=== PATIENT | female | born 1985 | race Two or more races ===

== ENCOUNTER 2024-11-12 12:23 | Emergency (ER) | payer MEDICAID, OTHER ==
[2024-11-12 12:39] VITALS: PULSE 129; RESP 20; TEMP 98.3; O2SAT 95
--- NOTE | 2024-11-12 14:29 | ED.PDOC ---
General HPI Comments This is a 39 year old female presenting to the ED with chief complaint of flank pain. Patient reports that she has been experiencing left sided flank pain with associated suprapubic pain, fever, and chills since Thursday. Patient relays that she saw her PCP on Thursday, being prescribed Macrobid, but no relief has been noted. Patient states her pain is an 8/10 at this time. Patient denies any hematuria, headache, N/V/D, or vaginal discharge. Chief Complaint: Urinary Time Seen by MD: 14:25 Reviewed notes: Nurses Notes, Medications, Allergies Allergies: Coded Allergies: NO KNOWN ALLERGIES (Unverified , 11/12/24) Information Source: Patient Mode of Arrival: Ambulatory Severity: Moderate Timing: Days Duration: Since onset Prehospital treatment: None Onset: Spontaneous History of: None Location: Suprapubic, (L)Flank associated signs and symptoms: Fever, Abdominal Pain, Flank Pain Past Medical History PAST MEDICAL HISTORY: Denies Surgical History: Denies all surgeries CORPORATE RISK ANALYST History: No Pertinent CORPORATE RISK ANALYST History Family History Family History: Reviewed,noncontributory to illness Social History Smoker: Non-Smoker Alcohol: Denies ETOH Use Drugs: Denies Drug Use Lives In: Home Constitutional: reports: chills, fever; denies: diaphoresis, fatigue, malaise, sweats, weakness, others EENTM: denies: blurred vision, double vision, ear bleeding, ear discharge, ear drainage, ear pain, ear ringing, eye pain, eye redness, hearing loss, mouth pain, mouth swelling, nasal discharge, nose bleeding, nose congestion, nose pain, photophobia, tearing, throat pain, throat swelling, voice changes, others Respiratory: denies: cough, hemoptysis, orthopnea, SOB at rest, shortness of breath, SOB with excertion, stridor, wheezing, others Cardiovascular: denies: chest pain, dizzy spells, diaphoresis, Dyspnea on exertion, edema, irregular heart beat, left arm pain, lightheadedness, palpitations, PND, syncope, others Gastrointestinal: reports: abdominal pain; denies: abdomen distended, blood streaked bowels, constipated, diarrhea, dysphagia, difficulty swallowing, stephan temesis, melena, nausea, poor appetite, poor fluid intake, rectal bleeding, rectal pain, vomiting, others Genitourinary: reports: flank pain; denies: abnormal vagina bleeding, burning, dyspareunia, dysuria, frequency, hematuria, incontinence, pain, , vagina discharge, urgency, others Neurological: denies: dizziness, fainting, headache, left sided numbness, left sided weakness, numbness, paresthesia, pre-existing deficit, right sided nu mbness, right sided weakness, seizure, speech problems, tingling, tremors, weakness, others Musculoskeletal: denies: back pain, gout, joint pain, joint swelling, muscle pain, muscle stiffness, neck pain, others Integumetry: denies: bruises, change in color, change in hair/nails, dryness, laceration, lesions, lumps, rash, wounds, others Allergic/Immunocompromised: denies: Difficulty Healing, Frequent Infections, Hives, Itching, others Hematologic/Lymphatic: denies: anemia, blood clots, easy bleeding, easy bruising, swollen glands, others Endocrine: denies: excessive hunger, excessive sweating, excessive thirst, excessive urination, flushing, intolerance to cold, intolerance to heat, unexplained weight gain, unexplained weight loss, others Psychiatric: denies: anxiety, bipolar disorder, depression, hopeless, panic disorder, schizophrenia, sleepless, suicidal, others All Other Systems: Reviewed and Negative Physical Exam General Appearance: No Apparent Distress, Normal HEENT: Normal ENT Inspection, Pharynx Normal, TMs Normal Neck: Full Range of Motion, Non-Tender, Normal, Normal Inspection Respiratory: Chest Non-Tender, Lungs Clear, No Accessory Muscle Use, No Respiratory Distress, Normal Breath Sounds Cardiovascular: No Edema, No JVD, No Murmur, No Gallop, Normal Peripheral Pulses, Regular Rate/Rhythm Breast Exam: Deferred Gastrointestinal: No Organomegaly, Non Tender, No Pulsatile Mass, Normal Bowel Sounds, Soft, Other (Left sided flank pain) Genitalia: Deferred Pelvic: Deferred Rectal: Deferred Extremities: No calf tenderness, Normal capillary refill, Normal inspection, Normal range of motion, Non-tender, No pedal edema Musculoskeletal : Apperance: Normal Neurologic: Alert, state director II-XII nml as Tested, No Motor Deficits, Normal Affect, Normal Mood, No Sensory Deficits Cerebellar Function: Normal Reflexes: Normal Skin: Dry, Normal Color, Warm Lymphatic: No Adenopathy Was a procedure done? Was a procedure done?: No Differential Diagnosis Kidney stone (Female): Pyelonephritis, Renal failure, Urinary obstruction, Urolithiasis Kidney stone (Male): Pyelonephritis, Urinary obstruction, Urolithiasis, Urinary tract infection Urinary Problem (Female): Urinary retention, Urolithiasis, UTI X-Ray, Labs, Meds, VS Vital Signs Date Time Temp Pulse Resp B/P (MAP) Pulse Ox O2 Delivery O2 Flow Rate FiO2 11/12/24 12:39 98.3 129 20 119/82 (94) 95 98.3 Lab Test 11/12/24 14:20 11/12/24 12:45 Range/Units White Blood Count 17.7 H 4.4-10.8 10^3/uL Red Blood Count 5.68 H 4.0-5.20 10^6/uL Hemoglobin 16.0 12.2-16.2 g/dL Hematocrit 47.4 H 36.0-46.0 % Mean Corpuscular Volume 83.4 80.0-100.0 fL Mean Corpuscular Hemoglobin 28.2 28.0-32.0 pg Mean Corpuscular Hemoglobin Concent 33.9 32.0-36.0 g/dL Red Cell Distribution Width 14.2 11.8-14.3 % Platelet Count 204 140-450 10^3/uL Mean Platelet Volume 9.2 6.9-10.8 fL Neutrophils (%) (Auto) 85.0 H 37.0-80.0 % Lymphocytes (%) (Auto) 6.2 L 10.0-50.0 % Monocytes (%) (Auto) 8.3 0.0-12.0 % Eosinophils (%) (Auto) 0.1 0.0-7.0 % Basophils (%) (Auto) 0.4 0.0-2.0 % Neutrophils # (Auto) 15.0 H 1.6-8.6 10 ^3/uL Lymphocytes # (Auto) 1.1 0.4-5.4 10 ^3/uL Monocytes # (Auto) 1.5 H 0-1.3 10 ^3/uL Eosinophils # (Auto) 0 0-0.8 10 ^3/uL Basophils # (Auto) 0.1 0-0.2 10 ^3/uL Nucleated Red Blood Cells 0.1 % Sodium Level 139 136-145 mmol/L Potassium Level 4.1 3.5-5.1 mmol/L Chloride Level 103 98-107 mmol/L Carbon Dioxide Level 26 20-31 mmol/L Anion Gap 10 5-15 Blood Urea Nitrogen 8 L 9-23 mg/dL Creatinine 0.95 0.550-1.02 mg/dL Glomerular Filtration Rate Calc 77 >90 mL/min BUN/Creatinine Ratio 8.4 L 10.0-20.0 Serum Glucose 99 74-106 mg/dL Calcium Level 10.4 8.7-10.4 mg/dL Urine Color Light-yellow Yellow Urine Clarity Clear Clear Urine pH 5.5 5.0-9.0 Urine Specific [place] 1.009 1.001-1.035 Urine Protein Negative Negative Urine Ketones Negative Negative Urine Blood 2+ H Negative /uL Urine Nitrite Negative Negative Urine Bilirubin Negative Negative Urine Urobilinogen Normal Negative mg/dL Urine Leukocyte Esterase 1+ Negative /uL Urine RBC 1 0 - 4 /hpf Urine Microscopic WBC 3 0-5 /HPF Urine Squamous Epithelial Cells Few <5 /hpf Urine Bacteria Few H None Seen /hpf Urine Glucose Normal Normal mg/dL Time of 1ST Reevaluation: 15:24 Reevaluation 1ST: Unchanged Patient Education/Counseling: Diagnosis, Treatment, Prognosis, Need For Follow Up Family Education/Counseling: No Family Present Additional Information Previous visits reviewed: None The following tests were ordered, and results were reviewed by me: CT Abd/Pel, UA, CBC, BMP Additional Information was gathered from interviewing the following independent historians: None I reviewed and agreed with the following test results read by other providers: CT Abd/Pel I discussed treatment and results with medical personnel and: patient Comprehensive systems review obtained and negative except for what is stated in the HPI. pt has fever, chills, flank pain, leukocytosis and uti. she has pyelonephritis and will be admitted for iv antibiotic SEPSIS Sepsis Screen Date sepsis recognized/suspect: Nov 12, 2024 Time Sepsis recognized/suspect: 1242 Recent Procedure: No On Antibiotic Therapy: No Respiratory Rate >20: No Heart Rate >90: Yes Temp<36 C (96.8 F) or >38.3 C: No SBP <90 or MAP <65 mmHG: No New Acute Mental Status Change: No Is the patient on CPAP, BIPAP,: No Physician Orders Ct Ab Pel Wo Con-No Oral Or Iv (11/12/24 14:05) Ceftriaxone 1gm/50ml D5w (Rocephin) (11/12/24 16:00) Vital Signs Date Time Temp Pulse Resp B/P (MAP) Pulse Ox O2 Delivery O2 Flow Rate FiO2 11/12/24 12:39 98.3 129 20 119/82 (94) 95 98.3 Laboratory Tests Test 11/12/24 14:20 White Blood Count 17.7 10^3/uL (4.4-10.8) H Reassessment Post Fluid SEPSIS FOCUS EXAM(REASSESSMENT Sepsis reassessment focused exam completed. Date: 11/12/24 Time 16:21 Departure 1 Departure Time of Disposition: 16:21 Impression: Primary Impression: Pyelonephritis Additional Impression: Sepsis Qualified Codes: A41.9 - Sepsis, unspecified organism Disposition: ADMITTED INPATIENT Admit to: Med Surg Condition: Serious Discharged With: Self Critical Care Note Critical Care Time?: Yes (55 min-critical care time only) Critical care comment: Due to concerns for patients condition deteriorating, the care required my highest level of attention and readiness to intervene. I assessed the patient, reviewed the medical records, ordered the appropriate tests and treatments, then reassessed for results and responsiveness. I communicated with medical personnel and consultants and formulated a plan of care. Total critical care time excludes any procedures Stability Stability form required: No Heart Score Heart Score: Heart Score Response (Comments) Value History N/A 0 EKG N/A 0 Age N/A 0 Risk Factors N/A 0 Troponin N/A 0 Total 0 I personally scribed for MORTEZA ARGUETA MD ([email or web address]) on 11/12/24 at 14:29. Electronically submitted by Carl Schmitt ([email or web address]). MORTEZA ARGUETA MD Nov 12, 2024 14:29
--- NOTE | 2024-11-12 14:38 | DVH ---
Exam: CT CT AB PEL WO CON-NO ORAL OR IV History: dysuria, lef flank pain Comparison Study: None TECHNIQUE: Multidetector CT of the abdomen was performed from lung bases to pubic symphysis. Imaging was performed without IV contrast. Axial, coronal and sagittal multiplanar reformats were obtained fr om the axial data set by the technologist. Radiation Dose Information: CT Dose: CTDI volume is 6.71 mGy. Dose-length product is 354.06 mGy*cm FINDINGS: Evaluation of solid organs is limited due to lack of intravenous contrast use. Findings: Lung Bases: No acute or significant lung base finding. Normal heart size. No pleural or pericardial effusion. Liver: The liver is normal in size. No focal lesions. Gallbladder and Biliary Tree: Unremarkable Spleen: Unremarkable Pancreas: The pancreas is grossly normal in appearance. Adrenal Glands: Unremarkable Kidneys: Kidneys are grossly normal without calculi or hydronephrosis. Bladder: Grossly unremarkable for degree of distention. Bowel: The stomach is grossly normal in appearance. Small bowel and colon are normal in caliber and d istribution. The appendix is not visualized; however, no secondary findings of acute appendicitis id entified. Ascites: Absent Lymphadenopathy: No mesenteric, retroperitoneal or periportal lymphadenopathy. Abdominal Wall and Mesentery: Unremarkable. Vasculature: The visualized abdominal aorta is normal in size and caliber. Evaluation of abdominal a nd pelvic vessels is limited due to lack of intravenous contrast. Pelvic Organs: Unremarkable Musculoskeletal: No aggressive focal bony lesions, acute fractures or dislocation. Soft tissues: Unremarkable IMPRESSION: 1. No nephrolithiasis or hydronephrosis. No ureteral calculi or bladder calculi. . Radiation optimization: All CT scans at this facility use at least one of these dose optimization david hniques: automated exposure control mA and/or kV adjustment per patient size (includes targeted exam s where dose is matched to clinical indication) or iterative reconstruction.
[2024-11-12 14:52] LABS: Basophils # (auto) 0.1 10 ^3/uL (0-0.2); Basophils % (auto) 0.4 % (0.0-2.0); Eosinophils # (auto) 0 10 ^3/uL (0-0.8); Eosinophils % (auto) 0.1 % (0.0-7.0); Hematocrit 47.4 % (36.0-46.0); Lymphocytes # (auto) 1.1 10 ^3/uL (0.4-5.4); Lymphocytes % (auto) 6.2 % (10.0-50.0); Mean Corpuscular Hemoglobin 28.2 pg (28.0-32.0); Mean Corpuscular Hgb Conc. 33.9 g/dL (32.0-36.0); Mean Corpuscular Volume 83.4 fL (80.0-100.0); Monocytes # (auto) 1.5 10 ^3/uL (0-1.3); Monocytes % (auto) 8.3 % (0.0-12.0); Nucleated Red Blood Cells % 0.1 %; Platelet Count (auto) 204 10^3/uL (140-450); Red Blood Cells 5.68 10^6/uL (4.0-5.20); Red Cell Distribution Width 14.2 % (11.8-14.3); White Blood Cell 17.7 10^3/uL (4.4-10.8)
[2024-11-12 14:59] LABS: Chloride 103 mmol/L (98-107); Potassium 4.1 mmol/L (3.5-5.1); Sodium 139 mmol/L (136-145)
[2024-11-12 15:00] LABS: Anion Gap 10 (5-15); Carbon Dioxide 26 mmol/L (20-31)
[2024-11-12 15:00] LABS: Urine Bacteria FEW /hpf (None Seen); Urine Blood 2+ /uL (Negative); Urine Clarity Clear (Clear); Urine Color Light-Yellow (Yellow); Urine Protein, UAD Negative (Negative); Urine Specific Gravity 1.009 (1.001-1.035); Urine Squamous Epithelial Cell FEW /hpf (<5); Urine Urobilinogen Normal (Negative); Urine WBC 3 /HPF (0-5); Urine pH 5.5 (5.0-9.0)
[2024-11-12 15:01] LABS: Calcium 10.4 mg/dL (8.7-10.4)
[2024-11-12 15:05] LABS: BUN/Creatinine Ratio 8.4 (10.0-20.0); Glucose 99 mg/dL (74-106)
[2024-11-12 15:07] LABS: Blood Urea Nitrogen 8 mg/dL (9-23)
[2024-11-12] MEDS ORDERED: cefTRIAXone 1GM/50ML D5W 50 ML IV ONE (16:00)
[2024-11-12 16:30] VITALS: BP 118/64
[2024-11-12] MEDS: LACTATED RINGER'S 1,550 ML IV ONE (16:30)
[2024-11-12] MEDS: VANCOMYCIN 1GM/200ML PM 200 ML IV ONE (16:30)
[2024-11-12] MEDS: NOREPINEPHRINE 8 MG/250ML KIT 250 ML IV SCH (16:30)
[2024-11-12] MEDS ORDERED: BACDST PO (20:23)
[2024-11-12] MEDS ORDERED: CEFEPIME 1GM/ 50ML 50 ML IV SCH (22:00)
== END 2024-11-12 20:46 | disposition left against medical advice (07) ==
LOC: ER 12:23
DX: N12 Tubulo-interstitial nephritis, not specified as acute or chronic (principal); A41.9 Sepsis, unspecified organism
CPT/HCPCS: 36415; 74176; 80048; 81001; 83605; 85025; 87040; 99291

== ENCOUNTER 2024-11-13 11:51 | Inpatient (IN) | payer MEDICAID ==
[~2024-11-13] VITALS: Ht 170.2 cm; Wt 75.4 kg
[~2024-11-13 11:51] MED LIST: BACDST PO
--- NOTE | 2024-11-13 12:16 | ED.PDOC ---
General HPI Comments 39 year old female presents to the ED with a chief complaint of LT flank pain onset 1 week. Patient was seen in this ED yesterday (11/12/24), was diagnosed with Pyelonephritis, was admitted, patient left AMA due to no child psychometrist. Patient returned to ED today, stating symptoms have not improved, states she has no child psychometrist, brought child with her. No other symptoms or modifying factors present at this time. Chief Complaint: Flank Pain Time Seen by MD: 11:58 Primary Care Provider: KRISTINA Osuna notes: Medications, Allergies Allergies: Coded Allergies: NO KNOWN ALLERGIES (Unverified , 11/12/24) Home Meds Active Scripts Sulfamethoxazole W/Trimethopri (Bactrim Ds Tablet) 1 Tab Tb, 1 TAB PO BID for 7 Days, #14 TAB Prov:NAN MIRELES MD 11/12/24 Information Source: Patient Mode of Arrival: Ambulatory Severity: Moderate Timing: Weeks Duration: Since onset Prehospital treatment: None Onset: Spontaneous History of: None Location: (L)Flank Modifying factors: None associated signs and symptoms: Fever, Nausea, Flank Pain Past Medical History PAST MEDICAL HISTORY: Denies Surgical History: Denies all surgeries BUSINESS PRACTICES OFFICER History: No Pertinent BUSINESS PRACTICES OFFICER History Family History Family History: Reviewed,noncontributory to illness Social History Smoker: Non-Smoker Alcohol: Denies ETOH Use Drugs: Denies Drug Use Lives In: Home Constitutional: reports: chills, fever; denies: diaphoresis, fatigue, malaise, sweats, weakness, others EENTM: denies: blurred vision, double vision, ear bleeding, ear discharge, ear drainage, ear pain, ear ringing, eye pain, eye redness, hearing loss, mouth pain, mouth swelling, nasal discharge, nose bleeding, nose congestion, nose pain, photophobia, tearing, throat pain, throat swelling, voice changes, others Respiratory: denies: cough, hemoptysis, orthopnea, SOB at rest, shortness of breath, SOB with excertion, stridor, wheezing, others Cardiovascular: denies: chest pain, dizzy spells, diaphoresis, Dyspnea on exertion, edema, irregular heart beat, left arm pain, lightheadedness, palpitations, PND, syncope, others Gastrointestinal: reports: nausea; denies: abdomen distended, abdominal pain, blood streaked bowels, constipated, diarrhea, dysphagia, difficulty swallowing, hematemesis, melena, poor appetite, poor fluid intake, rectal bleeding, rectal pain, vomiting, others Genitourinary: reports: flank pain; denies: abnormal vagina bleeding, burning, dyspareunia, dysuria, frequency, hematuria, incontinence, pain, , vagina discharge, urgency, others Neurological: denies: dizziness, fainting, headache, left sided numbness, left sided weakness, numbness, paresthesia, pre-existing deficit, right sided numbness, right sided weakness, seizure, speech problems, tingling, tremors, weakness, others Musculoskeletal: denies: back pain, gout, joint pain, joint swelling, muscle pain, muscle stiffness, neck pain, others Integumetry: denies: bruises, change in color, change in hair/nails, dryness, laceration, lesions, lumps, rash, wounds, others Allergic/Immunocompromised: denies: Difficulty Healing, Frequent Infections, Hives, Itching, others Hematologic/Lymphatic: denies: anemia, blood clots, easy bleeding, easy bruising, swollen glands, others Endocrine: denies: excessive hunger, excessive sweating, excessive thirst, excessive urination, flushing, intolerance to cold, intolerance to heat, unexplained weight gain, unexplained weight loss, others Psychiatric: denies: anxiety, bipolar disorder, depression, hopeless, panic disorder, schizophrenia, sleepless, suicidal, others All Other Systems: Reviewed and Negative Physical Exam General Appearance: Normal HEENT: Normal ENT Inspection, Pharynx Normal, TMs Normal Neck: Full Range of Motion, Non-Tender, Normal, Normal Inspection Respiratory: Chest Non-Tender, Lungs Clear, No Accessory Muscle Use, No Respiratory Distress, Normal Breath Sounds Cardiovascular: No Edema, No JVD, No Murmur, No Gallop, Normal Peripheral Pulses, Regular Rate/Rhythm Breast Exam: Deferred Gastrointestinal: No Organomegaly, Non Tender, No Pulsatile Mass, Normal Bowel Sounds, Soft Genitalia: Deferred Pelvic: Deferred Rectal: Deferred Extremities: No calf tenderness, Normal capillary refill, Normal inspection, Normal range of motion, Non-tender, No pedal edema Musculoskeletal : Apperance: Normal Neurologic: Alert, geneticist II-XII nml as Tested, No Motor Deficits, Normal Affect, Normal Mood, No Sensory Deficits Cerebellar Function: Normal Reflexes: Normal Skin: Dry, Normal Color, Warm Lymphatic: No Adenopathy Was a procedure done? Was a procedure done?: No Differential Diagnosis Kidney stone (Female): Pyelonephritis, Renal failure, Strain, Urinary obstruction, Urolithiasis Urinary Problem (Female): Pyelonephritis, Urinary retention, Urolithiasis, UTI X-Ray, Labs, Meds, VS Vital Signs Date Time Temp Pulse Resp B/P (MAP) Pulse Ox O2 Delivery O2 Flow Rate FiO2 11/13/24 12:01 98.9 120 20 114/76 (89) 97 98.9 Lab Test 11/13/24 12:15 11/13/24 12:07 Range/Units White Blood Count 15.8 H 4.4-10.8 10^3/uL Red Blood Count 5.42 H 4.0-5.20 10^6/uL Hemoglobin 15.1 12.2-16.2 g/dL Hematocrit 44.6 36.0-46.0 % Mean Corpuscular Volume 82.3 80.0-100.0 fL Mean Corpuscular Hemoglobin 27.9 L 28.0-32.0 pg Mean Corpuscular Hemoglobin Concent 33.9 32.0-36.0 g/dL Red Cell Distribution Width 13.9 11.8-14.3 % Platelet Count 184 140-450 10^3/uL Mean Platelet Volume 9.0 6.9-10.8 fL Neutrophils (%) (Auto) 84.1 H 37.0-80.0 % Lymphocytes (%) (Auto) 5.9 L 10.0-50.0 % Monocytes (%) (Auto) 9.5 0.0-12.0 % Eosinophils (%) (Auto) 0.1 0.0-7.0 % Basophils (%) (Auto) 0.4 0.0-2.0 % Neutrophils # (Auto) 13.3 H 1.6-8.6 10 ^3/uL Lymphocytes # (Auto) 0.9 0.4-5.4 10 ^3/uL Monocytes # (Auto) 1.5 H 0-1.3 10 ^3/uL Eosinophils # (Auto) 0 0-0.8 10 ^3/uL Basophils # (Auto) 0.1 0-0.2 10 ^3/uL Nucleated Red Blood Cells 0.1 % Sodium Level 136 136-145 mmol/L Potassium Level 3.7 3.5-5.1 mmol/L Chloride Level 99 98-107 mmol/L Carbon Dioxide Level 26 20-31 mmol/L Anion Gap 11 5-15 Blood Urea Nitrogen 9 9-23 mg/dL Creatinine 0.88 0.550-1.02 mg/dL Glomerular Filtration Rate Calc 85 >90 mL/min BUN/Creatinine Ratio 10.2 10.0-20.0 Serum Glucose 107 H 74-106 mg/dL Calcium Level 9.2 8.7-10.4 mg/dL Urine Color Yellow Yellow Urine Clarity Clear Clear Urine pH 6.5 5.0-9.0 Urine Specific [place] 1.014 1.001-1.035 Urine Protein Negative Negative Urine Ketones Negative Negative Urine Blood 2+ H Negative /uL Urine Nitrite Negative Negative Urine Bilirubin Negative Negative Urine Urobilinogen Normal Negative mg/dL Urine Leukocyte Esterase 1+ Negative /uL Urine RBC 13 0 - 4 /hpf Urine Microscopic WBC 17 H 0-5 /HPF Urine Squamous Epithelial Cells Few <5 /hpf Urine Bacteria Few H None Seen /hpf Urine Glucose Normal Normal mg/dL Time of 1ST Reevaluation: 13:33 Reevaluation 1ST: Unchanged Patient Education/Counseling: Diagnosis, Treatment, Prognosis, Need For Follow Up Family Education/Counseling: No Family Present Comments pt was seen for the same and admitted, but eloped before she was actually admitted. she returned to ER reporting she is not better and that she couldn't stay because she had her baby and did not bring her formula. she has the baby's formula with her now. i explained to her that i do not known the hospital policy regarding having her baby here, and that she should try to look for family to take the baby home, if the policy forbids it Additional Information Previous visits reviewed: 11/12/24 The following tests were ordered, and results were reviewed by me: CBC, BMP, UA I discussed treatment and results with medical personnel and: patient Comprehensive systems review obtained and negative except for what is stated in the HPI. SEPSIS Sepsis Screen Date sepsis recognized/suspect: Nov 13, 2024 Time Sepsis recognized/suspect: 1201 Recent Procedure: No On Antibiotic Therapy: No Respiratory Rate >20: No Heart Rate >90: Yes Temp<36 C (96.8 F) or >38.3 C: No SBP <90 or MAP <65 mmHG: No New Acute Mental Status Change: No Is the patient on CPAP, BIPAP,: No Vital Signs Date Time Temp Pulse Resp B/P (MAP) Pulse Ox O2 Delivery O2 Flow Rate FiO2 11/13/24 12:01 98.9 120 20 114/76 (89) 97 98.9 Laboratory Tests Test 11/13/24 12:15 White Blood Count 15.8 10^3/uL (4.4-10.8) H Reassessment Post Fluid SEPSIS FOCUS EXAM(REASSESSMENT Sepsis reassessment focused exam completed. Date: 11/13/24 Time 13:32 Departure 1 Departure Time of Disposition: 13:32 Impression: Primary Impression: Pyelonephritis Additional Impression: Sepsis Qualified Codes: A41.9 - Sepsis, unspecified organism Disposition: ADMITTED INPATIENT Admit to: Med Surg Condition: Serious Discharged With: Self Critical Care Note Critical Care Time?: No Stability Stability form required: No I personally scribed for MORTEZA ARGUETA MD ([email or web address]) on 11/13/24 at 12:16. Electronically submitted by Milka Sitnson ([email or web address]). I personally scribed for MORTEZA ARGUETA MD ([email or web address]) on 11/13/24 at 12:17. Electronically submitted by Milka Stinson ([email or web address]). MORTEZA ARGUETA MD Nov 13, 2024 12:16
[2024-11-13 12:24] LABS: Basophils # (auto) 0.1 10 ^3/uL (0-0.2); Basophils % (auto) 0.4 % (0.0-2.0); Eosinophils # (auto) 0 10 ^3/uL (0-0.8); Eosinophils % (auto) 0.1 % (0.0-7.0); Hematocrit 44.6 % (36.0-46.0); Hemoglobin 15.1 g/dL (12.2-16.2); Lymphocytes # (auto) 0.9 10 ^3/uL (0.4-5.4); Lymphocytes % (auto) 5.9 % (10.0-50.0); Mean Corpuscular Hemoglobin 27.9 pg (28.0-32.0); Mean Corpuscular Hgb Conc. 33.9 g/dL (32.0-36.0); Mean Corpuscular Volume 82.3 fL (80.0-100.0); Monocytes # (auto) 1.5 10 ^3/uL (0-1.3); Monocytes % (auto) 9.5 % (0.0-12.0); Neutrophils # (auto) 13.3 10 ^3/uL (1.6-8.6); Neutrophils % (auto) 84.1 % (37.0-80.0); Nucleated Red Blood Cells % 0.1 %; Platelet Count (auto) 184 10^3/uL (140-450); Red Blood Cells 5.42 10^6/uL (4.0-5.20); Red Cell Distribution Width 13.9 % (11.8-14.3); White Blood Cell 15.8 10^3/uL (4.4-10.8)
[2024-11-13 12:35] LABS: Chloride 99 mmol/L (98-107); Potassium 3.7 mmol/L (3.5-5.1)
[2024-11-13 12:36] LABS: Anion Gap 11 (5-15); Calcium 9.2 mg/dL (8.7-10.4); Carbon Dioxide 26 mmol/L (20-31); Sodium 136 mmol/L (136-145)
[2024-11-13 12:41] LABS: BUN/Creatinine Ratio 10.2 (10.0-20.0); Blood Urea Nitrogen 9 mg/dL (9-23); Glucose 107 mg/dL (74-106)
[2024-11-13 12:54] LABS: Urine Bacteria FEW /hpf (None Seen); Urine Blood 2+ /uL (Negative); Urine Clarity Clear (Clear); Urine Color Yellow (Yellow); Urine Protein, UAD Negative (Negative); Urine Specific Gravity 1.014 (1.001-1.035); Urine Squamous Epithelial Cell FEW /hpf (<5); Urine Urobilinogen Normal (Negative); Urine WBC 17 /HPF (0-5); Urine pH 6.5 (5.0-9.0)
[2024-11-13 15:40] VITALS: RESP 14
[2024-11-13] MEDS: SODIUM CHLORIDE 0.9% 1,000 ML IV ONE (15:44)
[2024-11-13] MEDS: cefTRIAXone 1GM/50ML D5W 50 ML IV ONE (15:48)
[2024-11-13] MEDS: LACTATED RINGER'S 1,850 ML IV ONE (15:50)
[2024-11-13] MEDS: VANCOMYCIN 1GM/200ML PM 200 ML IV ONE (15:50)
[2024-11-13] MEDS ORDERED: ONDANSETRON HCL 4 MG/2 ML VIAL IV PRN (19:15)
[2024-11-13 19:43] LABS: Chloride 104 mmol/L (98-107); Potassium 3.7 mmol/L (3.5-5.1); Sodium 141 mmol/L (136-145)
[2024-11-13 19:44] LABS: Anion Gap 8 (5-15); Calcium 9.4 mg/dL (8.7-10.4); Carbon Dioxide 29 mmol/L (20-31)
[2024-11-13 19:49] LABS: BUN/Creatinine Ratio 7.1 (10.0-20.0); Blood Urea Nitrogen 6 mg/dL (9-23); Glucose 107 mg/dL (74-106)
[2024-11-13 20:02] VITALS: BP 116/69; PULSE 103; RESP 16; TEMP 98.6; O2SAT 96
--- NOTE | 2024-11-13 20:28 | DVHHP2 ---
History of Present Illness Reason for Visit: Flank pain History of Present Illness 39-year-old female presents for evaluation of left flank pain. Patient endorses a one-week history of left-sided flank pain that is sharp in nature and nonradiating. Patient was seen yesterday and was diagnosed with pyelonephritis. Patient left AMA due to not having some of the take care of her child. Today she returns with same symptoms. Reports occasional chills. Past Medical History Denies Past Surgical History Denies Family History Noncontributory Smoke: No ALCOHOL: none Drugs: None Lives: with Family Review of Systems Review of Systems Review of systems are currently negative otherwise addressed in HPI. Allergies: Coded Allergies: NO KNOWN ALLERGIES (Unverified , 11/12/24) Medications Current Medications Medications Dose Ordered Sig/Cheikh Route Start Time Stop Time Status Last Admin Dose Admin Ondansetron HCl 4 mg Q4HP PRN IV 11/13/24 19:15 Acetaminophen 650 mg Q6HP PRN PO 11/13/24 19:15 Ceftriaxone Sodium 50 ml @ 100 mls/hr DAILY@09 IV 11/14/24 09:00 Exam Vital Signs Vital Signs Date Time Temp Pulse Resp B/P (MAP) Pulse Ox O2 Delivery O2 Flow Rate FiO2 11/13/24 19:30 98.6 103 22 116/69 (85) 96 98.6 11/13/24 15:40 Room Air* 0 21 Exam Gen: 39-year-old female in mild distress. Skin: Warm, dry, normal color and texture, no rash. HEENT: Normocephalic atraumatic, mucous membranes moist and pink. Neck: Cervical and supraclavicular nodes normal without enlargement, trachea is midline, thyroid gland is normal without masses. Pulmonary: Clear to auscultation and percussion bilaterally. Cardiac: Regular rate and rhythm. No murmur Abdomen: Soft, nontender, nondistended, bowel sounds present all 4 quadrants, no guarding, no rigidity, no organomegaly. Extremities: No cyanosis, clubbing, no edema Neuro: Cranial nerves II through XII grossly intact, normal affect and speech, no focal motor deficits. Labs/Xrays ORDERING PHYSICIAN: MORTEZA ARGUETA MD PROCEDURE(s): ABPL - CT AB PEL WO CON-NO ORAL OR IV REASON: dysuria, lef flank pain ORDER NUMBER(s): [id number], ACCESSION NUMBER(s): [id number] Exam: CT CT AB PEL WO CON-NO ORAL OR IV History: dysuria, lef flank pain Comparison Study: None TECHNIQUE: Multidetector CT of the abdomen was performed from lung bases to pubic symphysis. Imaging was performed without IV contrast. Axial, coronal and sagittal multiplanar reformats were obtained from the axial data set by the technologist. Radiation Dose Information: CT Dose: CTDI volume is 6.71 mGy. Dose-length product is 354.06 mGy*cm FINDINGS: Evaluation of solid organs is limited due to lack of intravenous contrast use. Findings: Lung Bases: No acute or significant lung base finding. Normal heart size. No pleural or pericardial effusion. Liver: The liver is normal in size. No focal lesions. Gallbladder and Biliary Tree: Unremarkable Spleen: Unremarkable Pancreas: The pancreas is grossly normal in appearance. Adrenal Glands: Unremarkable Kidneys: Kidneys are grossly normal without calculi or hydronephrosis. Bladder: Grossly unremarkable for degree of distention. Bowel: The stomach is grossly normal in appearance. Small bowel and colon are normal in caliber and distribution. The appendix is not visualized; however, no secondary findings of acute appendicitis identified. Ascites: Absent Lymphadenopathy: No mesenteric, retroperitoneal or periportal lymphadenopathy. Abdominal Wall and Mesentery: Unremarkable. Vasculature: The visualized abdominal aorta is normal in size and caliber. Evaluation of abdominal and pelvic vessels is limited due to lack of intravenous contrast. Pelvic Organs: Unremarkable Musculoskeletal: No aggressive focal bony lesions, acute fractures or dislocation. Soft tissues: Unremarkable IMPRESSION: 1. No nephrolithiasis or hydronephrosis. No ureteral calculi or bladder calculi. . Radiation optimization: All CT scans at this facility use at least one of these dose optimization techniques: automated exposure control mA and/or kV adjustment per patient size (includes targeted exams where dose is matched to clinical indication) or iterative reconstruction. Labs Test 11/13/24 19:28 11/13/24 13:47 11/13/24 12:15 11/13/24 12:07 Range/Units Sodium Level 141 # 136-145 mmol/L Potassium Level 3.7 3.5-5.1 mmol/L Chloride Level 104 98-107 mmol/L Carbon Dioxide Level 29 20-31 mmol/L Anion Gap 8 5-15 Blood Urea Nitrogen 6 L 9-23 mg/dL Creatinine 0.85 0.550-1.02 mg/dL Glomerular Filtration Rate Calc 88 >90 mL/min BUN/Creatinine Ratio 7.1 L 10.0-20.0 Serum Glucose 107 H 74-106 mg/dL Calcium Level 9.4 8.7-10.4 mg/dL Lactic Acid Level 1.3 0.4-2.0 mmol/L White Blood Count 15.8 H 4.4-10.8 10^3/uL Red Blood Count 5.42 H 4.0-5.20 10^6/uL Hemoglobin 15.1 12.2-16.2 g/dL Hematocrit 44.6 36.0-46.0 % Mean Corpuscular Volume 82.3 80.0-100.0 fL Mean Corpuscular Hemoglobin 27.9 L 28.0-32.0 pg Mean Corpuscular Hemoglobin Concent 33.9 32.0-36.0 g/dL Red Cell Distribution Width 13.9 11.8-14.3 % Platelet Count 184 140-450 10^3/uL Mean Platelet Volume 9.0 6.9-10.8 fL Neutrophils (%) (Auto) 84.1 H 37.0-80.0 % Lymphocytes (%) (Auto) 5.9 L 10.0-50.0 % Monocytes (%) (Auto) 9.5 0.0-12.0 % Eosinophils (%) (Auto) 0.1 0.0-7.0 % Basophils (%) (Auto) 0.4 0.0-2.0 % Neutrophils # (Auto) 13.3 H 1.6-8.6 10 ^3/uL Lymphocytes # (Auto) 0.9 0.4-5.4 10 ^3/uL Monocytes # (Auto) 1.5 H 0-1.3 10 ^3/uL Eosinophils # (Auto) 0 0-0.8 10 ^3/uL Basophils # (Auto) 0.1 0-0.2 10 ^3/uL Nucleated Red Blood Cells 0.1 % Urine Color Yellow Yellow Urine Clarity Clear Clear Urine pH 6.5 5.0-9.0 Urine Specific [place] 1.014 1.001-1.035 Urine Protein Negative Negative Urine Ketones Negative Negative Urine Blood 2+ H Negative /uL Urine Nitrite Negative Negative Urine Bilirubin Negative Negative Urine Urobilinogen Normal Negative mg/dL Urine Leukocyte Esterase 1+ Negative /uL Urine RBC 13 0 - 4 /hpf Urine Microscopic WBC 17 H 0-5 /HPF Urine Squamous Epithelial Cells Few <5 /hpf Urine Bacteria Few H None Seen /hpf Urine Glucose Normal Normal mg/dL Assessment/Plan Assessment/Plan Assessment Acute pyelonephritis Urinary tract infection Plan Admit the patient to [facility] [place] to the hospitalist Urine bacterial culture pending Rocephin Pain management Continue treatment per orders Plan discussed with: Patient My Orders Orders - DESIRE ROBERTSON Procedure Category Date Status Time Regular Diet DIET 11/14/24 Transmitted Breakfast Admit ADMIT 11/13/24 Transmitted 19:12 Ondansetron Hcl PHA 11/13/24 In Process (Zofran) 19:15 Condition: Stable SAMSON 11/13/24 In Process 19:12 Acetaminophen Tablet PHA 11/13/24 In Process (Tylenol Tablet) 19:15 Bedrest With Bathroom SAMSON 11/13/24 In Process Privileg 19:12 Ceftriaxone 1gm/50ml PHA 11/14/24 In Process D5w (Rocephin) 09:00 Urine Bacterial PAMELA 11/13/24 In Process Culture 19:12 Date of Service: Nov 13, 2024 Billing Provider: DESIRE ROBERTSON Common Visit Codes: 10830-CHUXNQS INP/OBS CARE (MOD) DESIRE ROBERTSON Nov 13, 2024 20:28
[2024-11-13 22:06] VITALS: BP 110/60; PULSE 101; RESP 15; TEMP 99; O2SAT 99
[2024-11-13] MEDS: ACETAMINOPHEN 325 MG TAB PO PRN (22:18)
[2024-11-13 22:48] VITALS: BP 106/70; PULSE 111; RESP 15; RESP 19; TEMP 98.9; O2SAT 97; O2SAT 98
[2024-11-14] VITALS (8 sets, daily range): BP systolic 91–130; BP diastolic 48–69; PULSE 80–100; RESP 15–20; TEMP 98.1–99.4; O2SAT 96–99
[2024-11-14] MEDS: SODIUM CHLORIDE 0.9% 1,000 ML IV ONE ×2 (09:17→19:49)
[2024-11-14] MEDS: cefTRIAXone 1GM/50ML D5W 50 ML IV SCH (09:18)
--- NOTE | 2024-11-14 17:49 | DVHPNRES ---
Progress Note Date Seen: Nov 14, 2024 Resident Creating Document: ALEXUS NYE KALA Has the PT tested + for MRSA If YES, has PT been informed?: No Medical Necessity Reason Pt with a Central, PICC or Fol: No Subjective Review of Systems Patient seen and examined at bedside. Patient is still complaining of bilateral flank pain and dysuria/frequency. Patient reports: No new complaints Changes from previous H/P or p: No Changes Objective vital signs Vital Sign Date Time Temp Pulse Resp B/P (MAP) Pulse Ox O2 Delivery O2 Flow Rate FiO2 11/14/24 17:00 98.6 91 20 101/69 (80) 97 98.6 11/14/24 08:00 Room Air* 0 21 Total Intake and Output 11/13/24 11/13/24 11/14/24 15:00 23:00 07:00 Intake Total 50 ml 20 ml Balance 50 ml 20 ml medications Current Medications Medications Dose Ordered Sig/Cheikh Route Start Time Stop Time Status Last Admin Dose Admin Ondansetron HCl 4 mg Q4HP PRN IV 11/13/24 19:15 Acetaminophen 650 mg Q6HP PRN PO 11/13/24 19:15 11/13/24 22:18 650 MG Ceftriaxone Sodium 50 ml @ 100 mls/hr DAILY@09 IV 11/14/24 09:00 11/14/24 09:18 100 MLS/HR Examination General Appearance: Alert, Oriented X3, Cooperative, No acute distress HEENT: Atraumatic, PERRLA, EOMI, Mucous membrane moist/pink Respiratory: Clear to auscultation, Normal air movement Cardiovascular: Regular rate, Normal S1, Normal S2, No murmurs, no chest wall tenderness Abdominal: Bilateral flank tenderness with suprapubic tenderness Extremities: No clubbing, No cyanosis, No edema, Normal pulses, No tenderness/swelling Skin: No rashes, No breakdown, No significant lesion Neuro: Normal gait, Normal speech, Strength at 5/5 X4 ext, Normal tone, Sensation intact, Cranial nerves 3-12 NL, Reflexes 2+ Psych/Mental Status: Mental status NL, Mood NL laboratory and microbiology Laboratory Tests 11/13/24 19:28 11/13/24 12:15 Test 11/13/24 19:28 Range/Units Serum Glucose 107 H 74-106 mg/dL Microbiology Date/Time Source Procedure Growth Status 11/13/24 13:47 Blood Blood Culture - Preliminary NO GROWTH AFTER 24 HOURS OF INCUBATION. Resulted 11/13/24 12:07 Voided Urine Urine Culture - Preliminary Resulted Labs and/or images reviewed: Labs reviewed by me, Image(s) reviewed by me Problem List/Assessment/Plan Problem List/Assessment/Plan Acute complicated UTI/pyelonephritis Sepsis, likely due to UTI * UA shows UTI picture * Abdominal CT scan shows no significant finding Plan/recommendation Empiric antibiotic Rocephin, IV fluid, and pain killer Blood culture/urine culture DIET: Regular diet DVT PROPHYLAXIS: Lovenox CODE STATUS: Goal of care discussed for more than 18 minutes, full code DISPOSITION: Med/surge Patient's status and plan discussed with the patient. Case discussed with Dr. Wolf. Plan discussed with: Patient, Other (RN) My Orders My Orders Orders - ALEXUS NYE RESDITHIEN Procedure Category Date Status Time Drug Screen LAB 11/14/24 Logged 07:29 Sodium Chloride 0.9% PHA 11/14/24 In Process 08:30 Basic Metabolic Panel LAB 11/15/24 Verified 04:00 Complete Blood Count LAB 11/15/24 Verified 04:00 ALEXUS NYE RESDIENT Nov 14, 2024 17:49
[2024-11-15] VITALS (7 sets, daily range): BP systolic 104–133; BP diastolic 67–92; PULSE 64–100; RESP 16–18; TEMP 98.1–99; O2SAT 96–98
[2024-11-15 05:45] LABS: Basophils # (auto) 0 10 ^3/uL (0-0.2); Basophils % (auto) 0.4 % (0.0-2.0); Eosinophils # (auto) 0.1 10 ^3/uL (0-0.8); Eosinophils % (auto) 1.1 % (0.0-7.0); Hematocrit 39.7 % (36.0-46.0); Hemoglobin 13.8 g/dL (12.2-16.2); Lymphocytes # (auto) 0.7 10 ^3/uL (0.4-5.4); Lymphocytes % (auto) 8.9 % (10.0-50.0); Mean Corpuscular Hemoglobin 28.3 pg (28.0-32.0); Mean Corpuscular Hgb Conc. 34.7 g/dL (32.0-36.0); Mean Corpuscular Volume 81.8 fL (80.0-100.0); Monocytes # (auto) 0.9 10 ^3/uL (0-1.3); Monocytes % (auto) 10.4 % (0.0-12.0); Neutrophils # (auto) 6.7 10 ^3/uL (1.6-8.6); Neutrophils % (auto) 79.2 % (37.0-80.0); Platelet Count (auto) 178 10^3/uL (140-450); Red Blood Cells 4.86 10^6/uL (4.0-5.20); White Blood Cell 8.4 10^3/uL (4.4-10.8)
[2024-11-15 05:55] LABS: Chloride 107 mmol/L (98-107); Potassium 3.6 mmol/L (3.5-5.1); Sodium 139 mmol/L (136-145)
[2024-11-15 05:56] LABS: Anion Gap 12 (5-15); Carbon Dioxide 20 mmol/L (20-31)
[2024-11-15 05:58] LABS: Calcium 8.6 mg/dL (8.7-10.4)
[2024-11-15 06:02] LABS: BUN/Creatinine Ratio 8.8 (10.0-20.0)
[2024-11-15 06:26] LABS: Blood Urea Nitrogen 6 mg/dL (9-23); Glucose 108 mg/dL (74-106)
--- NOTE | 2024-11-15 14:39 | DVHPNRES ---
Progress Note Date Seen: Nov 15, 2024 Resident Creating Document: ALEXUS NYE KALA Has the PT tested + for MRSA If YES, has PT been informed?: No Medical Necessity Reason Pt with a Central, PICC or Fol: No Subjective Review of Systems Patient seen and Examined at the bedside. Patient is feeling better since the patient but still complained of dysuria and frequency Patient reports: No new complaints, Feels better Changes from previous H/P or p: Changes Objective vital signs Vital Sign Date Time Temp Pulse Resp B/P (MAP) Pulse Ox O2 Delivery O2 Flow Rate FiO2 11/15/24 13:00 98.1 94 16 119/72 (88) 98 98.1 11/15/24 08:00 Room Air* 0 21 Total Intake and Output 11/14/24 11/14/24 11/15/24 15:00 23:00 07:00 Intake Total 450 ml 2420 ml 400 ml Balance 450 ml 2420 ml 400 ml medications Current Medications Medications Dose Ordered Sig/Cheikh Route Start Time Stop Time Status Last Admin Dose Admin Ondansetron HCl 4 mg Q4HP PRN IV 11/13/24 19:15 Acetaminophen 650 mg Q6HP PRN PO 11/13/24 19:15 11/15/24 09:00 650 MG Ceftriaxone Sodium 50 ml @ 100 mls/hr DAILY@09 IV 11/14/24 09:00 11/15/24 09:00 100 MLS/HR Examination General Appearance: Alert, Oriented X3, Cooperative, No acute distress HEENT: Atraumatic, PERRLA, EOMI, Mucous membrane moist/pink Respiratory: Clear to auscultation, Normal air movement Cardiovascular: Regular rate, Normal S1, Normal S2, No murmurs, no chest wall tenderness Abdominal: Normal bowel sounds, Soft, No tenderness, No hepatospenomegaly, No masses Extremities: No clubbing, No cyanosis, No edema, Normal pulses, No tenderness/swelling Skin: No rashes, No breakdown, No significant lesion Neuro: Normal gait, Normal speech, Strength at 5/5 X4 ext, Normal tone, Sensation intact, Cranial nerves 3-12 NL, Reflexes 2+ Psych/Mental Status: Mental status NL, Mood NL laboratory and microbiology Laboratory Tests 11/15/24 05:20 Test 11/15/24 05:20 Range/Units Serum Glucose 108 H 74-106 mg/dL Microbiology Date/Time Source Procedure Growth Status 11/13/24 13:47 Blood Blood Culture - Preliminary NO GROWTH AFTER 48 HOURS OF INCUBATION. Resulted 11/13/24 12:07 Voided Urine Urine Culture - Final Escherichia coli - ESBL Complete Labs and/or images reviewed: Labs reviewed by me, Image(s) reviewed by me Problem List/Assessment/Plan Problem List/Assessment/Plan Acute complicated UTI/pyelonephritis , due to ESBL Sepsis, likely due to UTI * UA shows UTI picture * Abdominal CT scan shows no significant finding Plan/recommendation Ertapenem, IV fluid, and pain killer Urine culture shows ESBL Blood cultures shows no growth within 48 hours DIET: Regular diet DVT PROPHYLAXIS: Lovenox CODE STATUS: Goal of care discussed for more than 18 minutes, full code DISPOSITION: Med/surge Patient's status and plan discussed with the patient. Case discussed with Dr. Wolf. Plan discussed with: Patient, Other (RN) ALEXUS NYE [facility] Nov 15, 2024 14:39
[2024-11-15] MEDS: ERTAPENEM SOD INJ 1 GM in SODIUM CHL 0.9% 50 ML IV ONE (16:27)
[2024-11-16 05:00] VITALS: BP 107/71; PULSE 94; RESP 17; TEMP 98.1; O2SAT 98
[2024-11-16 05:51] LABS: Basophils # (auto) 0 10 ^3/uL (0-0.2); Basophils % (auto) 0.7 % (0.0-2.0); Eosinophils # (auto) 0.2 10 ^3/uL (0-0.8); Eosinophils % (auto) 2.7 % (0.0-7.0); Hematocrit 42.6 % (36.0-46.0); Hemoglobin 14.5 g/dL (12.2-16.2); Lymphocytes # (auto) 1.3 10 ^3/uL (0.4-5.4); Lymphocytes % (auto) 20.2 % (10.0-50.0); Mean Corpuscular Hemoglobin 28.1 pg (28.0-32.0); Mean Corpuscular Volume 82.6 fL (80.0-100.0); Monocytes # (auto) 1.1 10 ^3/uL (0-1.3); Monocytes % (auto) 16.9 % (0.0-12.0); Neutrophils # (auto) 3.8 10 ^3/uL (1.6-8.6); Neutrophils % (auto) 59.5 % (37.0-80.0); Nucleated Red Blood Cells % 0.1 %; Platelet Count (auto) 205 10^3/uL (140-450); Red Blood Cells 5.16 10^6/uL (4.0-5.20); White Blood Cell 6.3 10^3/uL (4.4-10.8)
[2024-11-16 06:08] LABS: Anion Gap 11 (5-15); Carbon Dioxide 24 mmol/L (20-31); Chloride 104 mmol/L (98-107); Potassium 3.6 mmol/L (3.5-5.1); Sodium 139 mmol/L (136-145)
[2024-11-16 06:09] LABS: Calcium 8.9 mg/dL (8.7-10.4)
[2024-11-16 06:14] LABS: BUN/Creatinine Ratio 10.8 (10.0-20.0); Glucose 99 mg/dL (74-106)
[2024-11-16 06:23] LABS: Blood Urea Nitrogen 8 mg/dL (9-23)
[2024-11-16 08:00] VITALS: PULSE 97; RESP 18; O2SAT 96
[2024-11-16 09:11] VITALS: BP 109/77; PULSE 93; RESP 18; TEMP 98; O2SAT 98
[2024-11-16] MEDS: ERTAPENEM SOD INJ 1 GM in SODIUM CHL 0.9% 50 ML IV SCH (09:34)
[2024-11-16] MEDS ORDERED: NITR-52 PO (11:04)
--- NOTE | 2024-11-16 12:53 | DVHDSRES ---
Discharge Summary Date of Admission Resident Creating Document: ALEXUS NYE RESDIENT Nov 13, 2024 at 19:12 Date of Discharge: Nov 16, 2024 Labs/Diagnostic Data: Laboratory Results Test 11/16/24 05:15 11/14/24 08:10 11/13/24 13:47 11/13/24 12:07 White Blood Count 6.3 10^3/uL (4.4-10.8) Red Blood Count 5.16 10^6/uL (4.0-5.20) Hemoglobin 14.5 g/dL (12.2-16.2) Hematocrit 42.6 % (36.0-46.0) Mean Corpuscular Volume 82.6 fL (80.0-100.0) Mean Corpuscular Hemoglobin 28.1 pg (28.0-32.0) Mean Corpuscular Hemoglobin Concent 34.0 g/dL (32.0-36.0) Red Cell Distribution Width 14.0 % (11.8-14.3) Platelet Count 205 10^3/uL (140-450) Mean Platelet Volume 8.9 fL (6.9-10.8) Neutrophils (%) (Auto) 59.5 % (37.0-80.0) Lymphocytes (%) (Auto) 20.2 % (10.0-50.0) Monocytes (%) (Auto) 16.9 % (0.0-12.0) Eosinophils (%) (Auto) 2.7 % (0.0-7.0) Basophils (%) (Auto) 0.7 % (0.0-2.0) Neutrophils # (Auto) 3.8 10 ^3/uL (1.6-8.6) Lymphocytes # (Auto) 1.3 10 ^3/uL (0.4-5.4) Monocytes # (Auto) 1.1 10 ^3/uL (0-1.3) Eosinophils # (Auto) 0.2 10 ^3/uL (0-0.8) Basophils # (Auto) 0 10 ^3/uL (0-0.2) Nucleated Red Blood Cells 0.1 % Sodium Level 139 mmol/L (136-145) Potassium Level 3.6 mmol/L (3.5-5.1) Chloride Level 104 mmol/L (98-107) Carbon Dioxide Level 24 mmol/L (20-31) Anion Gap 11 (5-15) Blood Urea Nitrogen 8 mg/dL (9-23) Creatinine 0.74 mg/dL (0.550-1.02) Glomerular Filtration Rate Calc 104 mL/min (>90) BUN/Creatinine Ratio 10.8 (10.0-20.0) Serum Glucose 99 mg/dL (74-106) Calcium Level 8.9 mg/dL (8.7-10.4) Magnesium Level 2.1 mg/dL (1.6-2.6) Lactic Acid Level 1.3 mmol/L (0.4-2.0) Urine Color Yellow (Yellow) Urine Clarity Clear (Clear) Urine pH 6.5 (5.0-9.0) Urine Specific [place] 1.014 (1.001-1.035) Urine Protein Negative (Negative) Urine Ketones Negative (Negative) Urine Blood 2+ /uL (Negative) Urine Nitrite Negative (Negative) Urine Bilirubin Negative (Negative) Urine Urobilinogen Normal mg/dL (Negative) Urine Leukocyte Esterase 1+ /uL (Negative) Urine RBC 13 /hpf (0 - 4) Urine Microscopic WBC 17 /HPF (0-5) Urine Squamous Epithelial Cells Few /hpf (<5) Urine Bacteria Few /hpf (None Seen) Urine Glucose Normal mg/dL (Normal) Other Laboratory Tests 11/16/24 05:15 Brief Hx & Hospital Course: 39-year-old female presents for evaluation of left flank pain. Patient endorses a one-week history of left-sided flank pain that is sharp in nature and nonradiating. Patient was seen yesterday and was diagnosed with pyelonephritis. Patient left AMA due to not having some of the take care of her child. Today she returns with same symptoms. She also reports dysuria, frequency, suprapubic pain, fever, nausea, and generalized weakness. HOSPITAL COURSE: Patient was admitted at the line of complicated UTI/pyelonephritis. The patient was started on empiric antibiotic of Rocephin, IV fluid, and pain management. CT scan showed no significant finding. Urine culture showed E coli ESBL, sensitive to ertapenem and nitrofurantoin. Subsequently the patient was started on ertapenem 1 g daily. Blood culture after 24 hours showed no growth. On 11/16/2024, the patient was feeling better since admission. Abdominal pain, fever, nausea and generalized weakness had improved. Discharge plan discussed with the patient and the patient discharged home. DISCHARGE PLAN: Nitrofurantoin 100 mg twice daily for 2 weeks. Follow up with the PCP within 1 week of the discharge. Follow up with the discharge Clinic Continue home meds FINAL DIAGNOSIS: Acute complicated UTI/pyelonephritis due to E coli ESBL Sepsis, due to UTI Condition at Discharge: Good Final Diagnosis/Problems List Acute complicated UTI/pyelonephritis due to E coli ESBL Sepsis, due to UTI Discharge Disposition: Home Discharge Instruct/Medications Diet: Cardiac 2g Na,low cholest Activity: No Restrictions, As Tolerated Follow Up/Referral: Follow up with the PCP within 1 week of the discharge. Medications: Nitrofurantoin 100 mg b.i.d. for 2 weeks Continue home med Discharge Statement: "Patient was advised to return to the ER or call 911 if any headaches, dizziness, shortness of breath, chest pain, abdominal pain, bleeding, fevers, or worsening of medical condition. Patient was counseled about treatment plan, medications, possible side effects, patientverbalized understanding. All questions were answered to the best of my ability. This discharge took greater then 30 minutes in planning, reviewing documentation, counseling the patient, and discussing with other team members." ASSESSMENT ASSESSMENT Assessment UTI, due to ESBL ALEXUS NYE Nov 16, 2024 12:53
[2024-11-16 13:05] VITALS: BP 116/68; PULSE 83; RESP 20; TEMP 97.7; O2SAT 96
== END 2024-11-16 16:36 | disposition home or self-care (01) | DRG 720 ==
LOC: ER 11:55 → OVERFLOW 19:12 → EAST 22:48
PROVIDERS: ADMIT Student in an Organized Health Care Education/Training Program; ATTEND Student in an Organized Health Care Education/Training Program
DX: A41.9 Sepsis, unspecified organism (principal); N10 Acute pyelonephritis; B96.20 Unspecified Escherichia coli [E. coli] as the cause of diseases classified elsewhere
CPT/HCPCS: 36415; 80048; 81001; 83605; 83735; 85025; 87040; 87086; 87088; 87186; 96360; G0378; J1335